=== PATIENT | female | born 1990 | race Two or more races ===

== ENCOUNTER 2018-04-17 20:56 | Emergency (ER) | payer MEDICAID ==
[~2018-04-17] VITALS: Ht 162.6 cm; Wt 81.8 kg
[~2018-04-17 20:56] MED LIST: CYCL-120 PO; NAPR-56 PO
[2018-04-17] MEDS ORDERED: ibuprofen tablet 400 MG TABLET PO ONE (21:40)
[2018-04-17 22:00] VITALS: BP 130/70
== END 2018-04-17 22:04 | disposition home or self-care (01) ==
LOC: ER 20:58
DX: R07.89 Other chest pain (principal); R51 Headache; X58.XXXA Exposure to other specified factors, initial encounter; Y93.51 Activity, roller skating (inline) and skateboarding; Y92.89 Other specified places as the place of occurrence of the external cause; Y99.8 Other external cause status
CPT/HCPCS: 71046; 93005; 99284